=== PATIENT | female | born 1970 | race Caucasian/White ===

== ENCOUNTER 2016-05-21 12:18 | Emergency (ER) | payer OTHER | END 2016-05-21 14:35 | disposition home or self-care (01) | LOC: ER 12:18 | PROC: 0HQEXZZ Repair Left Lower Arm Skin, External Approach (ICD-10-PCS; principal; 2016-05-21) | DX: S51.812A Laceration without foreign body of left forearm, initial encounter (principal); Z88.0 Allergy status to penicillin; W54.0XXA Bitten by dog, initial encounter | CPT/HCPCS: 90471; 90714; 99283 ==